=== PATIENT | male | born 1975 | race Caucasian/White ===

== ENCOUNTER 2017-08-29 21:09 | Emergency (ER) | payer OTHER ==
[~2017-08-29] VITALS: Ht 177.8 cm; Wt 70.3 kg
[2017-08-29 21:44] VITALS: BP 109/73
--- NOTE | 2017-08-29 22:04 | ED EAR COMPLAINT ---
History of Present Illness General Chief Complaint: General Adult Stated Complaint: PT HAS A COUGH,EAR PROBLEM, Source: patient, family Exam Limitations: no limitations Vital Signs & Intake/Output Vital Signs & Intake/Output Vital Signs Date Time Temp Pulse Resp B/P B/P Pulse O2 O2 Flow FiO2 Mean Ox Delivery Rate 08/29 2144 97.5 66 18 109/73 97 Room Air Allergies Coded Allergies: NO KNOWN ALLERGIES (05/23/12) Reconcile Medications No Known Home Medications Triage Note: PER PT CO DIFF HEARING RT EAR BLOCKED. 4 DAYS AGO CHILLS BODY ACHES. TODAY CONGESTED Triage Nurses Notes Reviewed? yes HPI: 42M no significant PMH presenting with 2 days of right ear pain and fullness. Has had URI symptoms for the past week including productive cough with thin yellow sputum, mild SOB, and mild sore throat. Denies fever, chills, malaise, fatigue, chest pain, palpitations, meningeal signs, diarrhea, dysuria. Active smoker, wheezing slightly but not short of breath at this time. Past History Travel History Traveled to [place] past 21 day No Medical History Any Pertinent Medical History? see below for history Neurological: NONE EENT: NONE Cardiovascular: NONE Respiratory: NONE Gastrointestinal: NONE Hepatic: NONE Renal: NONE Musculoskeletal: NONE Psychiatric: NONE Endocrine: NONE Surgical History Surgical History: non-contributory Psychosocial History What is your primary language [place] Tobacco Use: Current Daily Use Daily Tobacco Use Amount/Type: => 5 Cigarettes daily Family History Hx Contributory? No Review of Systems Review of Systems Constitutional: Reports: no symptoms. EENTM: Reports: no symptoms. Respiratory: Reports: no symptoms. Cardiovascular: Reports: no symptoms. GI: Reports: no symptoms. Genitourinary: Reports: no symptoms. Musculoskeletal: Reports: no symptoms. Skin: Reports: no symptoms. Neurological/Psychological: Reports: no symptoms. Hematologic/Endocrine: Reports: no symptoms. Immunologic/Allergic: Reports: no symptoms. All Other Systems: Reviewed and Negative Physical Exam Physical Exam General Appearance: well developed/nourished, no apparent distress Head: atraumatic Eyes: Bilateral: normal appearance. Ears: Left: canal normal, Tympanic normal. Right: erythema, swelling, Tympanic red. Nose: normal inspection Mouth/Throat: dry mucous membranes, no pharyngeal erythema or exudates Neck: normal inspection, supple, full range of motion Cardiovascular/Respiratory: regular rate/rhythm, wheezing Back: normal inspection, normal range of motion Neurologic/Psych: awake, alert, oriented x 3, normal mood/affect Skin: intact, normal color, warm/dry Progress Differential Diagnoses I considered the following diagnoses in my evaluation of the patient: otitis media/externa, meningitis, cellulitis, foreign body Plan of Care: Orders Procedure Date/time Status THROAT CULTURE W/QUICK STREP 08/29 2151 Active RAPID VIRAL INFLUENZA A 08/29 2147 Complete Microbiology 08/29 2149 NASOPHARYN: Influenza Virus A & B Rapid Smear - COMP Initial ED EKG: none Departure Departure Disposition: HOME OR SELF CARE Condition: Stable Clinical Impression Primary Impression: Acute otitis media Referrals: Patient Has No Primary Care Dr (PCP/Family) Additional Instructions: Follow up with your PCP. Quit smoking. If your symptoms worsen or new return to ER. Departure Forms: Customer Survey General Discharge Information Prescriptions: Current Visit Scripts Amoxicillin/Potassium Clav (Augmentin [id number] Tablet) 1 TAB PO BID #14 TAB
[2017-08-29] MEDS ORDERED: AUGMENTIN 875-1 EACH PO (22:26)
== END 2017-08-29 22:28 ==
LOC: ERH 21:09
DX: H66.91 Otitis media, unspecified, right ear (principal); Z72.0 Tobacco use
CPT/HCPCS: 87804; 87804-59